=== PATIENT | female | born 1935 | race Caucasian/White ===

== ENCOUNTER → 2020-03-28 10:19 | Outpatient (CLI) | payer MEDICARE, SELFPAY ==
--- NOTE | ~2020-03-28 | MM_ITS ---
EXAMINATION: MM screening [facility] HISTORY: Screening TECHNIQUE: Craniocaudal and mediolateral oblique 3-D tomosynthesis images were obtained and synthetic 2-D images were generated. CAD analysis was submitted and interpreted. COMPARISON: Comparison to multiple prior studies sequentially, with oldest reviewed study dated 02/16. BREAST PARENCHYMAL COMPOSITION: There are scattered areas of fibroglandular density. FINDINGS: There is no evidence of suspicious mass, calcification, or architectural distortion to sugg est malignancy in either breast. There has been no suspicious interval change. IMPRESSION: 1. No mammographic evidence of malignancy. 2. Recommend routine screening mammography in one year. BI-RADS Category 1: Negative Reviewed, dictated and finalized at location A.
== END ==
DX: Z12.31 Encounter for screening mammogram for malignant neoplasm of breast (principal)
CPT/HCPCS: 77063; 77067

== ENCOUNTER → 2021-04-27 11:13 | Outpatient (CLI) | payer MEDICARE, SELFPAY ==
--- NOTE | ~2021-04-27 | MM_ITS ---
EXAMINATION: MM screening [facility] HISTORY: Screening TECHNIQUE: Craniocaudal and mediolateral oblique 3-D tomosynthesis images were obtained and synthetic 2-D images were generated. CAD analysis was submitted and interpreted. COMPARISON: Comparison to multiple prior studies sequentially, with oldest reviewed study dated 09/22. BREAST PARENCHYMAL COMPOSITION: There are scattered areas of fibroglandular density. FINDINGS: There is no evidence of suspicious mass, calcification, or architectural distortion to sugg est malignancy in either breast. There has been no suspicious interval change. IMPRESSION: 1. No mammographic evidence of malignancy. 2. Recommend routine screening mammography in one year. BI-RADS Category 1: Negative Reviewed, dictated and finalized at location A.
== END ==
PROVIDERS: Visit Provider Obstetrics & Gynecology Gynecology
DX: Z12.31 Encounter for screening mammogram for malignant neoplasm of breast (principal)
CPT/HCPCS: 77063; 77067

== ENCOUNTER → 2022-07-05 13:07 | Outpatient (CLI) | payer MEDICARE, SELFPAY ==
--- NOTE | ~2022-07-05 | MM_ITS ---
EXAMINATION: MM screening [facility] HISTORY: Screening mammogram TECHNIQUE: Craniocaudal and mediolateral oblique 3-D tomosynthesis images were obtained and synthetic 2-D images were generated. CAD analysis was submitted and interpreted. COMPARISON: 04/27/2021, 03/28/2020, 03/26/2019 BREAST PARENCHYMAL COMPOSITION: There are scattered areas of fibroglandular density. FINDINGS: Scattered benign-appearing calcifications are present. No suspicious mass, calcification, o r architectural distortion are identified in either breast to suggest malignancy. There has been no s uspicious interval change. IMPRESSION: 1. No mammographic evidence of malignancy. 2. Recommend routine screening mammography while the patient remains in good health. BI-RADS Category 2: Benign finding(s). Reviewed, dictated and finalized at location A. ONHOLE MAKER HAND IMPRESSION: 1. No mammographic evidence of malignancy. 2. Recommend routine screening mammography while the patient remains in good he alth. BI-RADS Category 2: Benign finding(s).
== END ==
DX: Z12.31 Encounter for screening mammogram for malignant neoplasm of breast (principal)
CPT/HCPCS: 77063; 77067

== ENCOUNTER 2023-03-19 10:53 | Outpatient (CLI) | payer MEDICARE, SELFPAY ==
[2023-03-19 13:50] LABS: Appearance Urine Clear (Clear); Blood Urine Negative (Negative); Color Urine Yellow (Yellow); Glucose Urine UA Negative (Negative); Ketones Urine Negative (Negative); Nitrate Urine Negative (Negative); Protein Urine Negative (Negative); Specific Grav Ur 1.008 (1.001-1.035)
[2023-03-19 13:51] LABS: Bacteria Urine None Seen /hpf; Bilirubin Urine Negative (Negative); Leukocyte Esterase Ur Trace LEU/UL (NEGATIVE); Non Pathogenic Casts 0-2; RBC Urine 0-2 /hpf (0-2); Squamous Epithelial Cell Urine Few /hpf (Few); Urobilinogen Urine 0.2 mg/dL (<2.0); WBC Urine 0-5 /hpf (0-3)
[2023-03-19 13:58] LABS: Add Urine Microscopic? YES
== END 2023-03-19 10:54 | disposition home or self-care (01) ==
DX: N39.0 Urinary tract infection, site not specified (principal)
CPT/HCPCS: 81001; 87086

== ENCOUNTER 2023-08-31 15:11 | Emergency (ER) | payer MEDICARE, SELFPAY ==
--- NOTE | ~2023-08-31 | XR_ITS ---
EXAM: XR humerus RT, XR elbow RT min 3V DATE: 08/31/2023 18:04 HISTORY: fall . COMPARISON: None available. FINDINGS: Decreased mineralization. No fracture or dislocation. No lytic or blastic lesion. Moderate AC joint and glenohumeral joint osteoarthritis. Mild degenerative change in the left elbow joint. Me dial and lateral enthesopathy. No erosion or periosteal change. Soft tissues within normal limits. IMPRESSION: No acute osseous finding in the right humerus or elbow. Reviewed, dictated and finalized at location K. TAL PRINTER IMPRESSION: No acute osseous finding in the right humerus or elbow.
--- NOTE | ~2023-08-31 | XR_ITS ---
EXAM: XR shoulder LT min 2V DATE: 08/31/2023 18:04 HISTORY: fall, pain . COMPARISON: None available. FINDINGS: Decreased mineralization. No fracture or dislocation. No lytic or blastic lesion. Joint sp aces are moderate AC joint and glenohumeral joint osteoarthritis. Subacromial narrowing as can be see n with rotator cuff pathology. No erosion or periosteal change. Mild interstitial change/edema in the lungs. IMPRESSION: No acute osseous finding the left shoulder. Mild interstitial change/edema in the lungs. Reviewed, dictated and finalized at location K. IDE DELIVERER
--- NOTE | ~2023-08-31 | XR_ITS ---
EXAM: XR knee RT 3V, XR knee LT 3V DATE: 08/31/2023 18:04 HISTORY: fall, pain . COMPARISON: None available. FINDINGS: Decreased mineralization. No fracture or dislocation. No lytic or blastic lesion. Moderate left and mild right knee osteoarthritis. Right quadriceps enthesopathy. No erosion or periosteal kristina nge. Scattered vascular calcifications. Moderate left and small right knee joint effusions. IMPRESSION: No acute osseous finding in the right or left knees. Reviewed, dictated and finalized at location K. STACKER IMPRESSION: No acute osseous finding in the right or left knees.
--- NOTE | ~2023-08-31 | CT_ITS ---
EXAMINATION: CT diagnostic chest w con DATE: 08/31/2023 18:16 INDICATION: blunt chest trauma TECHNIQUE: Computed tomography (CT) of the chest was performed with 100 mL Omnipaque-350 intravenous contrast. Automated exposure control and iterative reconstruction technique were employed. The dose-l ength product was 281.16 mGy-cm. COMPARISON: None. FINDINGS: CHEST: Thoracic aorta: Moderate calcification. No aneurysm. Lung parenchyma and airways: Emphysematous change. Mild dependent scar/atelectasis. Thoracic inlet, axillae and chest wall: Partially calcified 1.8 cm right thyroid nodule. No soft tiss ue mass. No axillary lymphadenopathy. Mediastinum: Large hiatal hernia. Heart and pericardium: Mild cardiomegaly. Mild aortic valve calcification. Coronary artery calcifications: Moderate. Pleura: No effusion or mass. Upper abdomen: Status post cholecystectomy. Left nephrolithiasis. Thoracic bones: Mildly displaced left anterior third rib fracture. Mildly displaced fracture at the l eft anterior second costochondral junction. Nondisplaced transverse fracture of the manubrium. Thorac olumbar scoliosis. IMPRESSION: Nondisplaced transverse fracture of the manubrium. Mildly displaced left anterior second costochondral and left anterior third rib fractures. Partially calcified 1.8 cm right thyroid nodule, recommend outpatient thyroid ultrasound for further evaluation. Reviewed, dictated and finalized at location K. R PLANT ELECTRICIAN IMPRESSION: Nondisplaced transverse fracture of the manubrium. Mildly displaced left anterior second costochondral and left anterior third rib fractures. Partially calcified 1.8 cm right thyroid nodule, recommend outpatient thyroid u ltrasound for further evaluation.
[2023-08-31 15:14] VITALS: BP 136/94; PULSE 79; RESP 16; TEMP 36.6; O2SAT 96
[2023-08-31 16:42] VITALS: BP 158/69; PULSE 81; RESP 20; O2SAT 94
--- NOTE | 2023-08-31 16:45 | ED.FALL ---
HPI - Fall General Chief Complaint: Fall Stated Complaint: fall/chest injury/arm inj Time Seen by Provider: 08/31/23 16:45 History of Present Illness HPI Narrative: Patient is a 88-year-old female with history of hypertension will here after a fall. She states that she was walking into a restaurant and her shoes seem to start sticking to the ground. She was able to stumble her way over to a table, falling and hitting the edge of the table with her chest. She notes that an ambulance was called at that time, she refused transport due to being with her developmentally delayed daughter at the restaurant. She came into the ED via private vehicle for evaluation. Patient complains of bilateral knee pain, anterior chest wall pain, bilateral arm pain and bruising. She denies head injury, denies loss of conciousness. No shortness of breath. She has been able to ambulate since the accident happened. No blood thinner use. Related Data Allergies Allergy/AdvReac Type Severity Reaction Status Date / Time celecoxib [From Celebrex] Allergy Unknown Verified 08/31/23 16:42 Review of Systems Review of Systems: All systems reviewed & are unremarkable except as noted in HPI and below Exam Narrative: GENERAL: Well-appearing, well-nourished, and in no acute distress. HEAD: Normocephalic, atraumatic. EYES: PERRLA and EOMI. ENT: Nares clear. Mucous membranes moist. NECK: Supple. No cervical tenderness. CHEST: Clear to auscultation. No respiratory distress. Anterior chest wall tenderness around the manubrium and over left anterior chest wall around ribs 2-4. No stepoffs appreciated, no crepitus, no overlying bruising. HEART: Regular rate and rhythm. Normal peripheral pulses. ABDOMEN: Soft, nontender, nondistended. Atraumatic. EXTREMITIES: R upper extremity: non tender shoulder with normal ROM. Bruising and tenderness appreciated mid shaft humerus, no deformity appreciated. Bruising and tenderness to the lateral elbow with normal ROM, no deformity appreciated. Forearm non tender, wrist non tender, hand non tender, strong radial pulse, sensation intact throughout arm. L upper extremity: tenderness to the shoulder with normal ROM, no deformities, no bruising, non tender humerus, elbow, forearm, wrist, hand with normal ROM and PMS. Strong radial pulse. R lower extremity: Pelvis stable, non tender hip and femur with normal ROM, Tenderness and bruising present to anterior knee, no laceration or abrasion, normal ROM, no deformities. Non tender lower leg, ankle, foot. Strong DP pulse, sensation intact to leg. L lower extremity: non tender hip and femur with normal ROM, Tenderness and bruising to the anterior knee with no laceration or abrasion present, normal ROM, lower leg, ankle and foot. Strong DP pulse present, normal sensation throughout the leg. SKIN: Warm, dry, no rash. NEURO: No focal deficits. Alert and oriented x3. PSYCH: Normal mood and affect. Course Course Emergency Course: Chart review performed. Patient here for ground level fall, hit chest, arms and knees. Triage vitals normal. No prior visits in our system. Patient seen and evaluated, non toxic appearing. Will do imaging to rule out traumatic injury. EKG and troponin to be performed to look for possible blunt cardiac injury. Additionally told nurse that she has been having some foul smelling urine after I left the room, will do UA. Patient already took tylenol at home, will hold off NSAIDS until I get some results back. Lab work and imaging reviewed. Elevated WBC of 17.1, electrolytes and renal function normal. Normal liver function. Troponin normal. Unlikely blunt cardiac injury given normal EKG and troponin. CTs show non displaced manubrium fracture and left third rib fracture. Now due for a dose of tylenol, will give this along with lidocaine patch, patient would prefer to avoid any stronger or new medications at this time. Incentive spirometer ordered. Awaiting UA and reevaluation with pain
--- NOTE | 2023-08-31 16:52 | ECG_ITS ---
Measurements Intervals [place] Rate: 86 P: 73 CO: 198 QRS: 12 QRSD: 93 T: 40 QT: 362 QTc: 434 Interpretive Statements SINUS RHYTHM WITH OCCASIONAL SUPRAVENTRICULAR PREMATURE COMPLEXES Electronically Signed On 09-01-2023 11:34:32 GIFTED TEACHER by Preet Archer M.D.
[2023-08-31 17:33] LABS: Basophils Absolute Auto 0.1 K/mm3 (0.0-0.1); Basophils Percent Auto 0.4 % (0.2-1.2); Eosinophils Absolute Auto 0.1 K/mm3 (0-0.3); Eosinophils Percent Auto 0.3 % (0-4.4); Hemoglobin 10.4 g/dL (12.0-15.0); Immature Granulocyte Absolute 0.18 K/mm3 (0.00-0.031); Immature Granulocyte Percent A 1.1 % (0-0.5); Lymphocytes Absolute Auto 1.41 K/mm3 (0.9-3.2); Lymphocytes Percent Auto 8.2 % (18.3-44.2); Mean Corpuscular HGB Conc 31.5 g/dl (32-36); Mean Corpuscular Hemoglobin 31.4 pg (26-34); Mean Corpuscular Volume 99.7 fl (80-100); Mean Platelet Volume 11.8 fl (7.4-10.4); Monocytes Absolute Auto 1.1 K/mm3 (0.1-0.6); Monocytes Percent Auto 6.3 % (2.6-8.5); Neutrophils Absolute Auto 14.3 K/mm3 (1.3-6.7); Neutrophils Percent Auto 83.7 % (45.5-73.1); Platelet Count Result 291 k/mm3 (150-375); Red Blood Count 3.31 M/mm3 (4.2-5.4); Red Cell Distribution Width 12.3 % (11.5-14.5); White Blood Count 17.1 K/mm3 (4.5-10.0)
[2023-08-31 17:47] LABS: Alanine Aminotransferase 20 U/L (6-35); Albumin Level 4.4 g/dL (3.5-5.1); Alkaline Phosphatase 81 U/L (38-126); Anion Gap 10 mmol/L (8-16); Aspartate Amino Transferase 33 U/L (14-36); Bilirubin,Total 0.5 mg/dL (0.2-1.3); Blood Urea Nitrogen 42 mg/dL (7-17); Calcium 9.8 mg/dL (8.4-10.2); Carbon Dioxide 25 mmol/L (22-30); Chloride 103 mmol/L (98-107); Estimated Glomerular Filt Rate 59; Glucose 101 mg/dL (65-110); Potassium 4.3 mmol/L (3.4-5.0); Sodium 138 mmol/L (137-145)
[2023-08-31 17:58] LABS: Troponin I < 0.012 ng/mL (0.000-0.034)
[2023-08-31 18:43] VITALS: BP 150/64; PULSE 92; RESP 19; O2SAT 93
[2023-08-31 18:49] LABS: Appearance Urine Clear (Clear); Bilirubin Urine Negative (Negative); Blood Urine Negative (Negative); Color Urine Yellow (Yellow); Glucose Urine UA Negative (Negative); Ketones Urine Negative (Negative); Leukocyte Esterase Ur Negative LEU/UL (Negative); Nitrate Urine Negative (Negative); Protein Urine Negative (Negative); Specific Grav Ur 1.018 (1.001-1.035); Urobilinogen Urine 0.2 mg/dL (<2.0); pH Urine 5.5 (5.0-9.0)
[2023-08-31 19:19] LABS: Add Urine Microscopic? NO
[2023-08-31] MEDS: ACETAMINOPHEN 325 MG TABLET 650 MG PO (19:35)
[2023-08-31] MEDS: LIDOCAINE 5% PATCH 1 PATCH TRANSDERM ×2 (19:35→20:34)
[2023-08-31 19:41] VITALS: BP 156/68; PULSE 95; RESP 20; O2SAT 95
== END 2023-08-31 20:52 | disposition home or self-care (01) ==
PROVIDERS: Emergency Provider Student in an Organized Health Care Education/Training Program
DX: S22.21XA Fracture of manubrium, initial encounter for closed fracture (principal); S22.42XA Multiple fractures of ribs, left side, initial encounter for closed fracture; I49.1 Atrial premature depolarization; E04.1 Nontoxic single thyroid nodule; W01.190A Fall on same level from slipping, tripping and stumbling with subsequent striking against furniture, initial encounter
CPT/HCPCS: 36415; 71260; 73030; 73060; 73080; 73562; 80053; 81003; 84484; 85025; 93005; 99284; A9270; Q9967

== ENCOUNTER 2024-03-23 17:54 | Emergency (ER) | payer MEDICARE, SELFPAY ==
--- NOTE | ~2024-03-23 | XR_ITS ---
EXAMINATION: XR pelvis 1-2V DATE: 03/23/2024 20:37 INDICATION: Fall. TECHNIQUE: An anteroposterior view of the pelvis was obtained. COMPARISON: None. FINDINGS: There is lumbar levoscoliosis and severe spondylosis. No fracture. There is mild osteoarthr itis of the hips. IMPRESSION: 1. Mild osteoarthritis of the hips. Reviewed, dictated and finalized at location A.
--- NOTE | ~2024-03-23 | CT_ITS ---
EXAMINATION: CT brain wo con DATE: 03/23/2024 21:15 INDICATION: Head injury. TECHNIQUE: Computed tomography (CT) of the head was performed without intravenous contrast. The mA wa s adjusted according to patient size. Iterative reconstruction technique was employed. The dose-lengt h product was 181.70 mGy-cm. COMPARISON: None FINDINGS: There is an old infarct in the left caudate nucleus. There are scattered areas of low atten uation in the cerebral white matter, which is within normal limits for the patient's age. There is n o intracranial hemorrhage, acute infarction, or abnormal intracranial mass lesion. The ventricles are normal in size. There is mild mucosal thickening in the ethmoid sinuses. There is a trace right mast oid effusion. IMPRESSION: 1. 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 Reviewed, dictated and finalized at location A.
--- NOTE | ~2024-03-23 | XR_ITS ---
EXAMINATION: XR chest 2V DATE: 03/23/2024 20:37 INDICATION: Fall. TECHNIQUE: Frontal and lateral views of the chest were obtained. COMPARISON: Chest 2 views 02/06/2012 FINDINGS: There is mild scarring at the lung apices. No pleural effusion or pneumothorax. The heart s ize is normal. There is a moderate-sized hiatal hernia. IMPRESSION: 1. Moderate-sized hiatal hernia. Reviewed, dictated and finalized at location A.
--- NOTE | ~2024-03-23 | XR_ITS ---
EXAMINATION: XR hand LT min 3V DATE: 03/23/2024 20:37 INDICATION: Fall. TECHNIQUE: 3 views of left hand were obtained. COMPARISON: None. FINDINGS: Bone alignment is normal. No fracture. There is mild osteoarthritis of triscaphe joint and severe osteoarthritis of first carpometacarpal joint. There is mild to moderate osteoarthritis of yen e of the interphalangeal joints. There is severe osteoarthritis of first interphalangeal joint and th ird proximal and distal interphalangeal joints. IMPRESSION: 1. Polyarticular osteoarthritis. Reviewed, dictated and finalized at location A.
--- NOTE | ~2024-03-23 | CT_ITS ---
EXAMINATION: CT facial & cervical spine wo DATE: 03/23/2024 21:15 INDICATION: Head injury. TECHNIQUE: Computed tomography (CT) of the maxillofacial region and cervical spine was performed with out intravenous contrast. Automated exposure control and iterative reconstruction technique were empl oyed. The dose-length product was 181.70 mGy-cm. COMPARISON: None FINDINGS: MAXILLOFACIAL CT: There is left periorbital soft tissue swelling. No orbital involvement. There are likely changes of o cular lens replacement surgeries. There is a trace right mastoid effusion. There is rightward deviati on of the nasal septum. No fracture. There is mild mucosal thickening in the ethmoid sinuses. CERVICAL SPINE CT: There are nodules in the thyroid measuring up to 14 mm, likely not clinically significant. There is m ild emphysema. There is mild scarring at the lung apices. There is kyphosis of cervical spine. There is 2 mm anterolisthesis of C3 on C4. Vertebral body heights are normal. There is moderately decreased disc height at C3-C4 and severely decreased disc from C4-C5 through C6-C7. The following disc levels are specifically discussed: C2-C3: There is no uncovertebral joint osteoarthritis. There is severe bilateral facet joint osteoart hritis. There is mild left neural foraminal stenosis. There is no central canal stenosis. C3-C4: There is severe bilateral uncovertebral joint osteoarthritis. There is severe bilateral facet joint osteoarthritis. There is mild bilateral neural foraminal stenosis. There is mild central canal stenosis. C4-C5: There is severe lateral uncovertebral joint osteoarthritis. There is severe bilateral facet toshia int osteoarthritis. There is mild bilateral neural foraminal stenosis. There is mild central canal st enosis. C5-C6: There is severe bilateral uncovertebral joint osteoarthritis. There is moderate bilateral face t joint osteoarthritis. There is mild bilateral neural foraminal stenosis. There is mild central marilyn l stenosis. C6-C7: There is severe bilateral uncovertebral joint osteoarthritis. There is severe bilateral facet joint osteoarthritis. There is mild bilateral neural foraminal stenosis. There is mild central canal stenosis. C7-T1: There is no uncovertebral joint osteoarthritis. There is severe bilateral facet joint osteoart hritis. There is no neural foraminal stenosis. There is no central canal stenosis. IMPRESSION: 1. No fracture. 2. Severe cervical spondylosis. Reviewed, dictated and finalized at location A.
[2024-03-23 18:39] VITALS: BP 165/57; PULSE 90; RESP 16; TEMP 36.6; O2SAT 96
--- NOTE | 2024-03-23 18:41 | ED.HEATRA ---
HPI - Head Injury General Chief complaint: Head Injury <Mona Patel PA-C - Last Filed: 03/24/24 09:18> Stated complaint: FALL,HEAD INJURY NO BLOOD THINNERS <Mona Patel PA-C - Last Filed: 03/24/24 09:18> Time Seen by Provider: 03/23/24 18:41 <Mona Patel PA-C - Last Filed: 03/24/24 09:18> Focused HPI: This is a 88 year old female that presents to the ER for a fall today with head injury. Reports she is unsure what caused her to fall. She hit her head. She does not believe she lost consciousness. Reports contusion to the left eyebrow. Unsure of last tetanus. She also sustained abrasions to the left hand. Denies vomiting, numbness or weakness. GENERAL: Well-appearing, well-nourished, and in no acute distress. HEAD: Normocephalic, atraumatic. CHEST: Clear to auscultation. ?No respiratory distress. HEART: Regular rate and rhythm.? NEURO: ?Alert and oriented x3. Patient screened in triage and initial orders placed.? ?Additional care and disposition to be based upon?diagnostic testing and treatment. <Mona Patel PA-C - Last Filed: 03/24/24 09:18> Focused HPI: This is a 88 year old female that presents to the ER for a fall today with head injury. Reports she is unsure what caused her to fall. She hit her head. She does not believe she lost consciousness. Reports contusion to the left eyebrow. Unsure of last tetanus. She also sustained abrasions to the left hand. Denies vomiting, numbness or weakness. GENERAL: Well-appearing, well-nourished, and in no acute distress. HEAD: Normocephalic, atraumatic. CHEST: Clear to auscultation. ?No respiratory distress. HEART: Regular rate and rhythm.? NEURO: ?Alert and oriented x3. Patient screened in triage and initial orders placed.? ?Additional care and disposition to be based upon?diagnostic testing and treatment. Agree with triage assessment. Patient states that she believes that her shoes got caught on something causing her to fall. Denies any blood thinner use. <Ksenia Bray MD - Last Filed: 03/24/24 01:48> Related Data Home medications: Home Medications Medication Instructions Recorded Confirmed atorvastatin 20 mg tablet 20 mg PO DAILY 11/07/23 03/16/24 enalapril maleate 20 mg tablet 20 mg PO BID 11/07/23 03/16/24 escitalopram oxalate 10 mg tablet 10 mg PO DAILY 11/07/23 03/16/24 omeprazole 40 mg capsule,delayed 40 mg PO DAILY 11/07/23 03/16/24 release triamterene 75 1 tablet PO DAILY 11/07/23 03/16/24 mg-hydrochlorothiazide 50 mg tablet Bifidobacterium infantis 4 mg 4 mg PO DAILY 02/05/24 03/16/24 capsule (Align) cholecalciferol (vitamin D3) 50 50 mcg PO DAILY 02/05/24 03/16/24 mcg (2,000 unit) chewable tablet clorazepate dipotassium 7.5 mg 7.5 mg PO DAILY PRN 02/05/24 03/16/24 tablet <Mona Patel PA-C - Last Filed: 03/24/24 09:18> Allergies/Adverse reactions: Allergies Allergy/AdvReac Type Severity Reaction Status Date / Time Sulfa (Sulfonamide Allergy Severe Anaphylaxis Verified 03/11/24 15:13 Antibiotics) celecoxib [From Celebrex] AdvReac Intermediate Anaphylactic Verified 03/11/24 15:13 Shock <Mona Patel PA-C - Last Filed: 03/24/24 09:18> Review of Systems Review of Systems: All systems are reviewed and are negative unless stated otherwise in the HPI. <Ksenia Bray MD - Last Filed: 03/24/24 01:48> All systems reviewed & are unremarkable except as noted in HPI and below <Mona Patel PA-C - Last Filed: 03/24/24 09:18> PMFSH Past Medical History Medical History: Medical History High cholesterol Water retention <Mona Patel PA-C - Last Filed: 03/24/24 09:18> Surgical History Surgical History: Surgical History History of bladder surgery History of hysterectomy <Mona Patel PA-C - Last Filed: 03/24/24 09:18> Family History
[2024-03-24] MEDS: TETANUS,DIPHTHERIA,AC PERTUSSIS ADULT (0.5 ML) BOOSTRIX IM (02:07)
[2024-03-24 02:17] VITALS: BP 112/86; PULSE 61; RESP 18; O2SAT 95
== END 2024-03-24 02:20 | disposition home or self-care (01) ==
PROVIDERS: Emergency Provider Emergency Medicine
DX: S00.81XA Abrasion of other part of head, initial encounter (principal); S61.412A Laceration without foreign body of left hand, initial encounter; M47.812 Spondylosis without myelopathy or radiculopathy, cervical region; W19.XXXA Unspecified fall, initial encounter; Z23 Encounter for immunization
CPT/HCPCS: 12001; 70450; 70486; 71046; 72125; 72170; 73130; 90471; 90715; 99284